=== PATIENT | female | born 1990 | race Caucasian/White ===

== ENCOUNTER 2018-07-04 16:04 | Observation (INO) | payer BC, OTHER ==
[2018-07-04] MEDS ORDERED: NS 0.9% 1000 ML* 1,000 ML IV ONE (16:24)
[2018-07-04] MEDS ORDERED: Ondansetron INJ* 2 MG/ML VIAL IV ONE (16:24)
[2018-07-04] MEDS ORDERED: Ketorolac INJ* 30 MG/ML 1 ML VIAL IV PUSH ONE (16:38)
--- NOTE | 2018-07-04 16:44 | ED ---
Nausea/Vomiting/Diarrhea HPI - HPI Summary HPI Summary: 28-year-old otherwise healthy female presents with 3 weeks worth of watery diarrhea now complicated by right flank pain that developed this afternoon. She has not had any urinary symptoms nor fever. She's had nausea without vomiting and also felt lightheaded to the point of possibly passing out today. She has a Mirena IUD and does not get irregular menses. She recently started a new job at [employer]. She has had no recent antibiotics nor exposure to elderly or nursing homes. - History of Current Complaint Chief Complaint: EDNauseaVomitDiarrh Stated Complaint: GENERAL ILLNESS Time Seen by Provider: 07/04/18 16:24 Hx Obtained From: Patient Pain Intensity: 10 - Allergies/Home Medications Allergies/Adverse Reactions: Allergies Allergy/AdvReac Type Severity Reaction Status Date / Time Penicillins Allergy Hives Verified 07/04/18 16:10 PMH/Surg Hx/FS Hx/Imm Hx Previously Healthy: Yes Infectious Disease History: No Infectious Disease History: Denies: Hx Clostridium Difficile, Traveled Outside the in Last 30 Days - Family History Known Family History: Positive: Hypertension - Social History Occupation: Employed Part-time Hx Substance Use: No Smoking Status (MU): Smoker, Current Status Unknown Review of Systems Positive: Fatigue. Negative: Fever ENT: Negative Cardiovascular: Negative Respiratory: Negative Positive: Diarrhea, Nausea, Other - watery diarrhea without melena or hematochezia. Negative: Abdominal Pain, Vomiting Positive: no symptoms reported Positive: Weakness All Other Systems Reviewed And Are Negative: Yes Physical Exam Triage Information Reviewed: Yes Vital Signs On Initial Exam: Initial Vitals Temp Pulse Resp BP Pulse Ox 98.4 F 106 18 121/71 99 07/04/18 16:11 07/04/18 16:11 07/04/18 16:11 07/04/18 16:11 07/04/18 16:11 Vital Signs Reviewed: Yes Appearance: Positive: Well-Appearing, Well-Nourished. Negative: No Pain Distress - Mild distress due to discomfort in the right flank Skin: Positive: Warm, Skin Color Reflects Adequate Perfusion, Dry Head/Face: Positive: Normal Head/Face Inspection Eyes: Positive: Normal ENT: Positive: Normal ENT inspection, Other - Mucous membranes moist Neck: Positive: Nontender, No Lymphadenopathy Respiratory/Lung Sounds: Positive: Clear to Auscultation, Breath Sounds Present Cardiovascular: Positive: RRR Abdomen Description: Positive: Nontender, No Organomegaly, Soft, Other: - Hyperactive bowel sounds Bowel Sounds: Positive: Hyperactive Musculoskeletal: Positive: Other - Tenderness to palpation in the right paralumbar musculature. Right CVA tenderness. Neurological: Positive: Normal, Sensory/Motor Intact, Alert, Oriented to Person Place, Time, CN Intact II-III Psychiatric: Positive: Normal AVPU Assessment: Alert Diagnostics - Vital Signs Vital Signs Temp Pulse Resp BP Pulse Ox 07/04/18 16:11 98.4 F 106 18 121/71 99 - Laboratory Result Diagrams: 07/04/18 16:40 07/04/18 16:40 Lab Statement: Any lab studies that have been ordered have been reviewed, and results considered in the medical decision making process. Re-Evaluation - Re-Evaluation First Eval Re-Evaluation Time: 17:54 Change: Improved - No improvement with Toradol, IV fluids but has had some improvement with morphine Naus/Vom/Diarrhea Course/Dx - Course Course Of Treatment: Patient with significant right CVA tenderness and muscular tenderness in that side as well as urinary symptoms and a positive UA. She has elevated WBC and nausea without vomiting. Diarrhea may be causative of acute pyelonephritis. Stool sample sent. Renal ultrasound pending. Discussed with hospitalist who will admit. IV Rocephin here for infection. - Differential Dx/Diagnosis Differential Diagnoses - Female: Appendicitis, , Pyelonephritis, Renal Calculi, Other - C. difficile colitis Provider Diagnoses: Acute pyelonephritis. Acute diarrhea Is Visit Related: No Condition At Discharge: Fair - Physician Notification/Consults Discussed Case/Management/Disposition Of Patient With: Kenton Ramsey - will evaluate in the ER and admit Instructed by Provider To: Admit As Inpatient Discharge - Sign-Out/Discharge Documenting (check all that apply): Patient Departure - Discharge Plan Condition: Fair Disposition: ADMITTED TO [facility] Referrals: No Primary Care Phys,NOPCP [Primary Care Provider] - - Billing Disposition and Condition Condition: FAIR Disposition: Admitted to [facility] - Attestation Statements Document Initiated by Scribe: No
[2018-07-04 16:47] LABS: ABS Basophils 0 10^3/ul (0-0.2); ABS Eosinophils 0.1 10^3/ul (0-0.6); ABS Lymphocytes 1.7 10^3/ul (1.0-4.8); ABS Monocytes 1.1 10^3/ul (0-0.8); ABS Neutrophils 10.7 10^3/ul (1.5-7.7); ABS Nucleated RBC 0 10^3/ul; Eosinophil % 0.8 % (0-6); Hematocrit 36 % (35-47); Hemoglobin 11.9 g/dl (12.0-16.0); Lymphocyte % 12.7 % (25-47); Mean Corpuscular HGB Conc 34 g/dl (31-36); Mean Corpuscular Hemoglobin 32 pg (27-31); Mean Corpuscular Volume 95 fL (80-97); Mean Platelet Volume 8.7 um3 (7.4-10.4); Nucleated Red Blood Cells % 0; Platelet Count 152 10^3/ul (150-450); Red Blood Count 3.76 10^6/ul (4.00-5.40); Red Cell Distribution Width 13 % (10.5-15); White Blood Count 13.7 10^3/ul (3.5-10.8)
[2018-07-04 17:07] LABS: Urine Appearance Cloudy; Urine Blood Negative (Negative); Urine Color Yellow; Urine Ketones Negative (Negative); Urine Protein 1+(30 mg/dL) (Negative); Urine Red Blood Cell 3+(>10/hpf) (Absent); Urine Specific Gravity 1.018 (1.010-1.030); Urine Urobilinogen Negative (Negative); Urine White Blood Cell 3+(>20/hpf) (Absent)
[2018-07-04 17:10] LABS: EGFR Non-African American 58.5 (>60)
[2018-07-04] MEDS ORDERED: cefTRIAXone(*) 1 GM in NS 0.9% 50 ML* 50 ML IVPB ONE (17:18)
[2018-07-04] MEDS ORDERED: Morphine INJ** 4 MG/ML 1 ML CARPUJECT IV ONE (17:19)
[2018-07-04] MEDS ORDERED: Morphine INJ* 4 MG/ML 1 ML SYRINGE (NEW SYRINGE VERSION) ONE (17:27)
[2018-07-04] MEDS ORDERED: Morphine INJ* 4 MG/ML 1 ML SYRINGE (NEW SYRINGE VERSION) IV ONE (18:35)
[2018-07-04] MEDS ORDERED: Acetaminophen TAB* 325 MG PO PRN (18:36)
[2018-07-04] MEDS ORDERED: Ketorolac INJ* 30 MG/ML 1 ML VIAL IV PRN (18:36)
[2018-07-04] MEDS ORDERED: Al Hydrox/Mg Hydrox/Simet LIQ* 30 ML UDC PO PRN (18:38)
--- NOTE | 2018-07-04 18:56 | RAD ---
EXAM: US Retroperitoneal Limited, Renal CLINICAL HISTORY: 28 years old, female; Pain; Abdominal pain; Flank; Right; Additional info: R flank pain, pyelo TECHNIQUE: Real-time ultrasound of the right kidney (limited) with image documentation. COMPARISON: No relevant prior studies available. FINDINGS: Right kidney: Normal-sized right kidney, 12.5 cm in length without hydronephrosis, stone, or mass. Left kidney: Not evaluated IMPRESSION: Normal-sized right kidney, 12.5 cm in length without hydronephrosis, stone, or mass. To contact [facility] with a general question: Operations Center - [phone] For direct physician to physician contact: Physician Hotline - [phone] [facility] ([facility] Facility ID #[id number])
[2018-07-04 20:35] VITALS: BP 136/75
--- NOTE | 2018-07-04 21:24 | DCNOTE ---
Subjective Date of Service: 07/04/18 Interval History: this is a 28 yr old female presented to er with flank pain and diarrheas. pt was treated with antibotic. renal sono did not show stones. hospitalist service was summoned multiple times for her requests for higher and stronger dose of opioids. pt also c/o her finger tips have been numb but no definite color change and has been going on for few weeks ( first time ) then changed her c/o to today ( when revisted ) she has been getting her friend's neurontin prior to coming here. explained to her that neuro consult could be called in tmr morning. pt was offered with tramadol and toradol besides her morphine but she demands a stronger pain medication ---> morphine would last 5 min for her. she wants to go to another facility which will treat her pain " properly ". pt wants to go [facility] now and already called her friend at bedside to take her to another facility. as per friend, she lives much closer to [facility]. pt was not d/cd with any meds because she planned to go to another facility immediately after leaving here. pt knows the risks of leaving [facility] including worsening condition with resultant permanent disability and and demands iv access to be out now. Objective Active Medications: Acetaminophen (Tylenol Tab*) 650 mg PO Q6H PRN PRN Reason: PAIN Al Hydrox/Mg Hydrox/Simethicone (Maalox Plus*) 30 ml PO Q6H PRN PRN Reason: INDIGESTION Lactated Ringer's (Lactated Ringers 1000 Ml Bag*) 1,000 mls @ 175 mls/hr IV PER RATE BHARATH Stop: 07/06/18 00:43 Ceftriaxone Sodium 1 gm/ (Sodium Chloride) 50 mls @ 200 mls/hr IVPB Q24H BHARATH Ketorolac Tromethamine (Toradol Inj*) 30 mg IV Q6H PRN PRN Reason: PAIN Stop: 07/09/18 18:36 Vital Signs - 8 hr 07/04/18 07/04/18 07/04/18 16:11 17:30 17:31 Temperature 98.4 F Pulse Rate 106 84 Respiratory 18 18 Rate Blood Pressure 121/71 122/78 (mmHg) O2 Sat by Pulse 99 100 Oximetry 07/04/18 07/04/18 07/04/18 18:00 18:30 19:00 Temperature Pulse Rate 87 93 90 Respiratory Rate Blood Pressure 127/86 127/86 131/85 (mmHg) O2 Sat by Pulse 100 100 100 Oximetry 07/04/18 07/04/18 07/04/18 19:19 19:31 19:50 Temperature 98.2 F Pulse Rate 104 104 Respiratory 18 18 Rate Blood Pressure 131/89 131/89 (mmHg) O2 Sat by Pulse 100 100 Oximetry 07/04/18 07/04/18 19:59 20:18 Temperature 98.9 F Pulse Rate 99 Respiratory 20 18 Rate Blood Pressure 136/75 (mmHg) O2 Sat by Pulse 98 Oximetry Oxygen Devices in Use Now: None Result Diagrams: 07/04/18 16:40 07/04/18 16:40 Microbiology and Other Data: Microbiology 07/04/18 18:37 C. difficile DNA Amplification - Final Stool 027 Presumptive NEGATIVE Toxigenic C.diff NEGATIVE Assess/Plan/Problems-Billing Assessment:
--- NOTE | 2018-07-05 00:16 | HP ---
ADMISSION HISTORY AND PHYSICAL: DATE OF ADMISSION: 07/04/18 PRIMARY CARE PROVIDER: Dr. Steele; however, has not seen in 3 years. HEALTHCARE PROXY: John Richardson, her boyfriend. CODE STATUS: Full. SOURCE OF INFORMATION: History obtained from interview with patient and review of past medical records. RELIABILITY: Poor. The patient is an inconsistent and difficult historian. CHIEF COMPLAINT: Right flank pain and diarrhea. HISTORY OF PRESENT ILLNESS: This is a 28-year-old female with no known significant past medical history who had been in her usual state of health until approximately 2 weeks prior to presentation to our service, noticed right flank pain that lasted for several minutes, several times a day. Around the same time, she started to develop watery bowel movements that have occurred approximately 7 times per day, most frequently in the morning before tapering off later in the afternoon. She states that the bowel movements do not wake her up from her sleep, although are preceded by the abdominal pain that is relieved with her defecation, which is predominantly watery. Yesterday, she noted the pain in the right flank was much worse. She took Motrin with some relief; however, woke up this morning with sharp-like knife pain in her right flank. It was worse with inspiration. She had nausea, but no vomiting associated with pain. Denied any dysuria, decreased or increased urinary output , urinary hesitancy, fevers, chills, night sweats, rigors, cough, dyspnea on exertion, or chest pain. She noted the abdominal pain remains to be crampy and sharp to her right flank prior to bowel movements, which she noticed to be dark but not bloody or with mucus. The patient denies any recent travel. No recent antibiotics or no changes in medications. However, the patient does note that she has had some tingling in her hands and her toes for which she took gabapentin from a friend for the last week with the last dose yesterday. She has had UTIs in the remote past, she has difficulty characterizing, but did remember that she did experience dysuria with those. At the time of this interview, she was in pain requesting more pain medication predominantly for her right flank pain. In the emergency room, she received 1000 mL of normal saline as well as pain control before this author evaluated her. PAST MEDICAL HISTORY: None. MEDICATIONS: None. She does have the Mirena IUD. ALLERGIES: To PENICILLIN, which she believes causes hives. It should be noted that she has already received a dose of ceftriaxone in the emergency room this day without undue side effects. SOCIAL HISTORY: Smokes 1 pack every 2 to 3 days down from 1 pack per over the last 10 years. No alcohol. Denies all illicits. Works at the [employer]. FAMILY HISTORY: Significant for father with rheumatoid arthritis. Mother with no known medical history. REVIEW OF SYSTEMS: As per HPI, including right flank pain, diarrhea, abdominal pain relieved with defecation; nausea. Otherwise, all other systems reviewed and negative. PHYSICAL EXAMINATION GENERAL: Well appearing female, sitting up in bed, interactive, pleasant, no apparent distress. VITAL SIGNS: When seen by this author, 127/86, heart rate is 91, respiratory rate is 16, she is 100% on room air, T-max 98.4. HEENT: Oropharynx is clear. She has dry mucous membranes. Her sclerae are anicteric. She has non-elevated JVD. She has no cervical or supraclavicular lymphadenopathy. LUNGS: Clear to auscultation. She has quite significant right costovertebral angle tenderness. HEART: She has a regular rate and rhythm, a very soft 1/6 early peaking systolic ejection murmur, loudest in the right upper sternal border. ABDOMEN: Soft, nontender, nondistended. Positive bowel sounds. No rebound or guarding. EXTREMITIES: Warm and well perfused without clubbing, cyanosis, or edema. She has less than 2 second capillary refill. NEUROLOGIC: She is alert and oriented x3. Cranial nerves II through XII are intact. She has no apparent anxiety, agitation, or depression. LABORATORY DATA: Labs are reviewed, notable for a sodium of 154, chloride of 115, BUN 12, creatinine 1.11. Lactic acid 0.5. Total bilirubin 0.4, AST 13, ALT 10, alk phos 33. Her beta-hCG is less than 0.6. Her white blood cell count is 13.7, her hemoglobin is 11.9 with hematocrit of 36, MCV of 95, platelets 152. Her urine is notable for squamous epithelial cells and transitional cells as well as protein, leuk esterase, white blood cells, red blood cells, bacteria, and yeast. IMAGING: Data reviewed. Renal ultrasound is taken and pending. Chest x-ray is ordered by this author, has not yet been received. ASSESSMENT AND PLAN: This is a 28-year-old female with no known past medical history presenting with 2 weeks of increasing right flank pain associated with diarrhea. 1. Right flank pain. Greatest concern is pyelonephritis in the setting of her age as well as location. She certainly may have developed UTI in the setting of diarrhea. It is curious though that she had no preceding UTI symptoms, which should be expected in a woman this age especially in one that has had similar symptoms in the past. Her renal ultrasound is currently pending, looking for obstruction or other obvious stones. I will check a chest x-ray to rule out other pulmonary etiologies. Of note, she has Mirena and she is a smoker, which does not appear to increase the risk of pulmonary embolism as does estrogen contraceptives. I think pulmonary embolism is low in its risk, as her predominant symptoms are right flank pain and diarrhea in the absence of dyspnea on exertion or shortness of breath, cough. She is satting 100% on room air and no longer tachycardic after administration of fluids. However, if the infectious etiology is not identified and she fails to improve, we will proceed to a CTA of her chest to rule out an embolus. For infection, continue ceftriaxone, 2 more liters of fluid overnight, and repeat labs in the morning. 2. Diarrhea. Suspect viral; however, check C. diff as well as stool cultures. Fluids as indicated above. 3. Pain: One dose of morphine now and then Toradol and Tylenol. 4. DVT prophylaxis is low risk. DVT score is 0. Ambulate ad ralph. [id number]/[facility] #: [id number] [facility]
--- NOTE | 2018-07-05 07:56 | RAD ---
INDICATION: Dyspnea on exertion. RIGHT flank pain. COMPARISON: No relevant prior exams available on the [facility] [place]. TECHNIQUE: Dual energy PA and routine lateral views of the chest were obtained. REPORT: Clear lungs and pleural spaces. Negative for pneumothorax. The heart, pulmonary vasculature, and mediastinal contours are unremarkable. Unremarkable osseous structures and soft tissue contours. IMPRESSION: #. No evidence for acute intrathoracic disease. R1
[2018-07-05] MEDS ORDERED: cefTRIAXone(*) 1 GM in NS 0.9% 50 ML* 50 ML IVPB SCH (17:00)
== END 2018-07-04 20:30 | disposition left against medical advice (07) ==
LOC: ED 16:04 → MED 18:38
PROVIDERS: ADMIT Internal Medicine; ATTEND Internal Medicine
DX: N10 Acute pyelonephritis (principal); R19.7 Diarrhea, unspecified; R10.84 Generalized abdominal pain; R53.1 Weakness; Z72.0 Tobacco use; R53.83 Other fatigue; Z53.21 Procedure and treatment not carried out due to patient leaving prior to being seen by health care provider
CPT/HCPCS: 36415; 71046; 76775; 80053; 81003; 81015; 83605; 84702; 85025; 86703; 87045; 87046; 87077; 87086; 87186; 87425; 87493; 87899; 96365; 96366; 96375; 96376; 99284; G0378; J0696; J1885; J2270; J2405

== ENCOUNTER 2018-10-02 15:48 | Emergency (ER) | payer OTHER ==
[2018-10-02] MEDS ORDERED: HYDROcodone/ACETAMIN 5-325 MG* 1 TAB PO ONE (17:06)
[2018-10-02] MEDS ORDERED: Clindamycin CAP* 150 MG PO ONE (17:07)
--- NOTE | 2018-10-02 17:24 | ED ---
Throat Pain/Nasal Congestion - HPI Summary HPI Summary: Patient is a 28-year-old female with a history of gingivitis, broken teeth, issues with dentition and presenting to the ED with a left upper wisdom tooth Which broke off earlier this afternoon. She states she's been using ibuprofen without relief. She is currently at a 10 out of 10 pain, constant and aching. She is tearful on arrival. She states the pain is radiating up into the left ear and into the left side of the head causing a headache. She's never had anything like this before. She has never had an issue with dental infections. Patient is a smoker, denies smoking currently due to the pain. Denies any fevers, sweats, chills. - History of Current Complaint Chief Complaint: EDDentalPain Time Seen by Provider: 10/02/18 16:13 Hx Obtained From: Patient Onset/Duration: Sudden Onset Severity: Moderate Associated Signs And Symptoms: Positive: Negative - Epiglottits Risk Factors Epiglottis Risk Factors: Negative - Allergies/Home Medications Allergies/Adverse Reactions: Allergies Allergy/AdvReac Type Severity Reaction Status Date / Time Penicillins Allergy Hives Verified 10/02/18 16:14 Home Medications: Home Medications Ibuprofen TAB* [Motrin TAB* 800 MG] 800 mg PO Q6H PRN 10/02/18 [History Confirmed 10/02/18] PMH/Surg Hx/FS Hx/Imm Hx Previously Healthy: Yes Sensory History: Denies: Hx Contacts or Glasses, Hx Hearing Aid Opthamlomology History: Denies: Hx Contacts or Glasses - Immunization History Hx Pertussis Vaccination: No Immunizations Up to Date: Yes Infectious Disease History: No Infectious Disease History: Denies: Hx Clostridium Difficile, Traveled Outside the [place] in Last 30 Days - Family History Known Family History: Positive: Hypertension - Social History Occupation: Employed Full-time Lives: With Family Alcohol Use: None Hx Substance Use: No Substance Use Type: Reports: None Smoking Status (MU): Light Every Day Tobacco Smoker Review of Systems Negative: Fever, Chills, Fatigue, Skin Diaphoresis Positive: Dental Pain Negative: Palpitations, Chest Pain Negative: Shortness Of Breath, Cough Genitourinary: Negative Positive: no symptoms reported, see HPI Negative: Arthralgia, Myalgia Negative: Rash, Bruising Psychological: Normal All Other Systems Reviewed And Are Negative: Yes Physical Exam Triage Information Reviewed: Yes Vital Signs On Initial Exam: Initial Vitals Temp Pulse Resp BP Pulse Ox 98.6 F 76 18 133/80 100 10/02/18 16:00 10/02/18 16:00 10/02/18 16:00 10/02/18 16:00 10/02/18 16:00 Vital Signs Reviewed: Yes Appearance: Positive: Well-Appearing, Well-Nourished Skin: Positive: Warm, Skin Color Reflects Adequate Perfusion Head/Face: Positive: Normal Head/Face Inspection Eyes: Positive: EOMI, GRAHAM, Conjunctiva Clear Dental: Positive: Percussion Tenderness @, Gross Decay/Caries @, Dental Fracture @ - #17 Cardiovascular: Positive: RRR, Pulses are Symmetrical in both Upper and Lower Extremities Musculoskeletal: Positive: Normal, Strength/ROM Intact Neurological: Positive: Sensory/Motor Intact, Alert, Oriented to Person Place, Time, Speech Normal Psychiatric: Positive: Normal, Affect/Mood Appropriate AVPU Assessment: Alert Diagnostics - Vital Signs Vital Signs Temp Pulse Resp BP Pulse Ox 10/02/18 16:00 98.6 F 76 18 133/80 100 - Laboratory Lab Statement: Any lab studies that have been ordered have been reviewed, and results considered in the medical decision making process. EENT Course/Dx - Course Course Of Treatment: Patient appears in acute distress on arrival, she is tearful. She states the upper wisdom tooth, tooth #17. Earlier this afternoon and has been constantly throbbing since that time. Physical examination tooth # 17 with a cap missing over the tooth. No evidence of infection or swelling. No erythema to the cheek. She is given hydrocodone and clindamycin in the ED and also these are prescribed. She will continue to take ibuprofen and Tylenol and use [id number] Anbesol. She will follow-up with dentist as soon as possible. - Diagnoses Provider Diagnoses: Pain, dental, Fractured tooth Discharge - Sign-Out/Discharge Documenting (check all that apply): Patient Departure - Discharge Plan Condition: Stable Disposition: HOME Prescriptions: Clindamycin Cap(NF) [Clindamycin Cap 300 mg Cap(NF)] 300 mg PO Q8H #21 cap HYDROcodone/ACETAMIN 5-325 MG* [[place] 5-325 TAB*] 1 tab PO Q4H PRN #12 tab MDD 6 PRN Reason: Pain Patient Education Materials: Acute Dental Trauma (ED), Toothache (ED) Referrals: Harvey Steele MD [Primary Care Provider] - Additional Instructions: Please follow-up with dentist as soon as possible Ibuprofen 800 mg 3 times daily Tylenol 650 mg 3 times daily Use these intermittently You may also use the hydrocodone as needed Clindamycin 3 times daily 7 days Anbesol or clove oil to be used for discomfort - Billing Disposition and Condition Condition: STABLE Disposition: Home
[2018-10-02 17:37] VITALS: BP 122/73
== END 2018-10-02 17:36 | disposition home or self-care (01) ==
LOC: ED 15:48
DX: K08.89 Other specified disorders of teeth and supporting structures (principal); K03.81 Cracked tooth; Z88.0 Allergy status to penicillin; F17.200 Nicotine dependence, unspecified, uncomplicated
CPT/HCPCS: 99282; A9270-GY

== ENCOUNTER 2019-02-25 20:55 | Emergency (ER) | payer OTHER ==
[2019-02-25 21:29] LABS: Urine Appearance Clear; Urine Bilirubin Negative (Negative); Urine Blood Negative (Negative); Urine Color Yellow; Urine Glucose Negative (Negative); Urine Ketones Trace (Negative); Urine Nitrite Negative (Negative); Urine Protein Negative (Negative); Urine Urobilinogen Negative (Negative)
[2019-02-25] MEDS ORDERED: Ketorolac INJ* 30 MG/ML 1 ML VIAL IV PUSH ONE (23:14)
[2019-02-25] MEDS ORDERED: NS 0.9% 1000 ML** 1,000 ML IV SCH (23:15)
--- NOTE | 2019-02-25 23:17 | ED ---
GI/ HPI - HPI Summary HPI Summary: The patient is a 28 y/o F presenting to [facility] with a chief complaint of sudden onset right flank pain and vaginal symptoms starting this morning. She states she was driving to work when she had sudden onset vaginal burning without discharge or bleeding, and then she had sudden onset of right flank pain that radiates to the right low back. The sharp pain is currently rated 10/10 in severity and is aggravated by bending over. She denies fever, nausea, vomiting, and RLQ or LLQ pain. Hx of kidney infection. - History of Current Complaint Chief Complaint: EDAbdPain Time Seen by Provider: 02/25/19 23:00 Stated Complaint: FLANK/ABD PAIN PER PT Hx Obtained From: Patient Onset/Duration: Started Hours Ago - this morning, Still Present Timing: Constant Severity: Moderate Current Severity: Severe Pain Intensity: 10 Location of Pain: Flank - right Pain Characteristics: Sharp Pain Radiates to: Back - right low Associated Signs and Symptoms: Positive: Back Pain, Flank Pain - right, Other: - POSITIVE: vaginal burning;NEGATIVE: LLQ or RLQ pain. Negative: Nausea, Vomiting Additional Signs & Symptoms: Negative: Vaginal Bleeding, Vaginal Discharge Aggravating Factor(s): Movement - bending over Alleviating Factor(s): Nothing - Allergy/Home Medications Allergies/Adverse Reactions: Allergies Allergy/AdvReac Type Severity Reaction Status Date / Time Penicillins Allergy Hives Verified 02/25/19 20:59 Home Medications: Home Medications Gabapentin CAP(*) [Neurontin 400 mg CAP(*)] 400 mg PO BID 02/25/19 [History Confirmed 02/25/19] PMH/Surg Hx/FS Hx/Imm Hx Respiratory History: Denies: Hx Asthma History: Reports: Hx Kidney Infection Sensory History: Denies: Hx Contacts or Glasses, Hx Hearing Aid Opthamlomology History: Denies: Hx Contacts or Glasses - Surgical History Surgery Procedure, Year, and Place: none Infectious Disease History: No Infectious Disease History: Denies: Hx Clostridium Difficile, Traveled Outside the [place] in Last 30 Days - Family History Known Family History: Positive: Hypertension - Social History Occupation: Employed Full-time Alcohol Use: None Hx Substance Use: No Substance Use Type: Reports: None Hx Tobacco Use: Yes Smoking Status (MU): Light Every Day Tobacco Smoker Review of Systems Negative: Fever Negative: Vomiting, Nausea Positive: burning - in vaginal area, flank pain - right flank (no LLQ or RLQ), other - NEGATIVE: vaginal bleeding. Negative: discharge Positive: Other - right low back from flank All Other Systems Reviewed And Are Negative: Yes Physical Exam - Summary Physical Exam Summary: Appearance: Well appearing, no pain distress Skin: warm, dry, reflects adequate perfusion Head/face: normal Eyes: EOMI, GRAHAM ENT: normal Neck: supple, non-tender Respiratory: CTA, breath sounds present Cardiovascular: RRR, pulses symmetrical Abdomen: right flank tenderness, soft Musculoskeletal: normal, strength/ROM intact Neuro: normal, sensory motor intact, A&Ox3 Pelvic Exam: no adnexal tenderness, mild discharge, no CMT Triage Information Reviewed: Yes Vital Signs On Initial Exam: Initial Vitals Temp Pulse Resp BP Pulse Ox 98.7 F 94 18 121/83 99 02/25/19 20:57 02/25/19 20:57 02/25/19 20:57 02/25/19 20:57 02/25/19 20:57 Vital Signs Reviewed: Yes Diagnostics - Vital Signs Vital Signs Temp Pulse Resp BP Pulse Ox 02/25/19 20:57 98.7 F 94 18 121/83 99 - Laboratory Lab Results: Lab Results 02/25/19 02/25/19 Range/Units 21:16 21:31 Beta HCG, Quant < 0.60 mIU/mL Urine Color Yellow Urine Appearance Clear Urine pH 6.0 (5-9) Ur Specific [place] 1.010 (1.010-1.030) Urine Protein Negative (Negative) Urine Ketones Trace A (Negative) Urine Blood Negative (Negative) Urine Nitrate Negative (Negative) Urine Bilirubin Negative (Negative) Urine Urobilinogen Negative (Negative) Ur Leukocyte Esterase Negative (Negative) Urine Glucose Negative (Negative) Urine Ascorbic Acid * A (Negative) Result Diagrams: 02/25/19 21:31 02/25/19 21:31 Lab Statement: Any lab studies that have been ordered have been reviewed, and results considered in the medical decision making process. - CT Abd/Pel CT CT Interpretation Completed By: Radiologist Summary of CT Findings: 1. No CT findings to correlate with patient's symptomatology. Specifically no obstructing renal or ureteral calculi. 2. Left lower lobe mucus plug and associated atelectasis. Possibility of small focal pneumonia is additionally considered. ED physician has reviewed this radiology report. Re-Evaluation - Re-Evaluation First Eval Re-Evaluation Time: 01:30 Comment: I spoke with patient concerning results and discharge home. GIGU Course/Dx - Course Assessment/Plan: The patient is a 28 y/o F presenting to [facility] with a chief complaint of sudden onset right flank pain that radiates to the right low back and vaginal burning without discharge or bleeding starting this morning. Upon physical exam, the patient exhibits right flank tenderness, and pelvic exam reveals no adnexal tenderness, mild discharge, and no CMT. Pelvic exam was performed with help of nurse Lao. In the ED course, the patient was administered Ns and Toradol for pain. Blood work and UA obtained. CT Abd/Pel impression reveals no findings of renal calculi, but there is left lower lobe mucus plug with associated atelectasis. She is diagnosed with abdominal pain. She will be discharged home with prescription for Ibuprofen. She will follow up with her PCP in 2-3 days. She agrees with this plan and understands the need for return to the ED for any new or worsening symptoms. will call back if any results are positive - Diagnoses Provider Diagnoses: Abdominal pain Discharge - Sign-Out/Discharge Documenting (check all that apply): Patient Departure - Patient will be discharged home. Patient Received Moderate/Deep Sedation with Procedure: No - Discharge Plan Condition: Stable Disposition: HOME Prescriptions: Ibuprofen TAB* [Motrin TAB* 600 MG] 600 mg PO Q8H PRN #15 tab MDD 3 PRN Reason: Pain Patient Education Materials: Abdominal Pain (ED) Referrals: [facility]ERR[facility] [Outside] - 3 Days Additional Instructions: Please take medication as prescribed. Follow up with your primary care provider in 2-3 days. RETURN TO THE EMERGENCY DEPARTMENT FOR ANY NEW OR WORSENING SYMPTOMS. - Billing Disposition and Condition Condition: STABLE Disposition: Home - Attestation Statements Document Initiated by [email or web address]: Yes Documenting Scribe: Ana Paula Dillon Provider For Whom Cristal is Documenting (Include Credential): Dr. Lonnie Jaramillo MD Scribe Attestation: Ana Paula Grider scribed for Dr. Lonnie Jaramillo MD on 02/26/19 at 0254. Scribe Documentation Reviewed: Yes Provider Attestation: The documentation as recorded by the Ana Paula christian accurately reflects the service I personally performed and the decisions made by me, Dr. Lonnie Jaramillo MD Status of Scribe Document: Viewed
[2019-02-25 23:51] LABS: ABS Basophils 0.1 10^3/ul (0-0.2); ABS Eosinophils 0.2 10^3/ul (0-0.6); ABS Monocytes 0.8 10^3/ul (0-0.8); Eosinophil % 1.4 %; Hematocrit 39 % (35-47); Hemoglobin 12.8 g/dL (12.0-16.0); Lymphocyte % 27.5 %; Mean Corpuscular HGB Conc 33 g/dL (31-36); Mean Corpuscular Hemoglobin 31 pg (27-31); Mean Corpuscular Volume 94 fL (80-97); Mean Platelet Volume 9.2 fL (7.4-10.4); Platelet Count 208 10^3/uL (150-450); Red Cell Distribution Width 13 % (10.5-15)
[2019-02-25 23:53] LABS: Albumin 4.3 g/dL (3.2-5.2); Calcium 9.6 mg/dL (8.6-10.3); Potassium 4.3 mmol/L (3.5-5.0); Total Bilirubin 0.3 mg/dL (0.2-1.0)
[2019-02-25 23:59] LABS: Albumin/Globulin Ratio 1.5 (1-3); BUN/Creatinine Ratio 10.5 (8-20); C Reactive Protein 16.48 mg/L (<8.01); EGFR African American 95.1 (>60); EGFR Non-African American 78.6 (>60); Globulin 2.8 g/dL (2-4); Total Protein 7.1 g/dL (6.4-8.9)
[2019-02-26 00:19] LABS: Activated Partial Thrombo Time 35.5 seconds (26.0-38.0); INR 1.15 (0.82-1.09)
[2019-02-26 01:42] VITALS: BP 97/52
--- NOTE | 2019-02-27 09:10 | PN ---
Progress Note - Progress Note Date of Service: 02/26/19 Note: Called patient at 9:10a to make aware of test results. Positive Gardnerella, negative Leatha No answer. Left message. Patient called back at 10 AM. Discussed results with the patient. Flagyl 500 mg twice a day 7 days sent to pharmacy. 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
[2019-02-28 13:53] LABS: Neisseria gonorrhoeae (GC) RNA Negative (Negative)
[2019-02-28 14:08] LABS: Trichomonas vaginalis Result Negative (Negative)
[2019-02-28 18:29] LABS: HSV 1 PCR Negative (Negative); Herpes Source VAGINA
== END 2019-02-26 01:47 | disposition home or self-care (01) ==
LOC: ED 20:55
DX: R10.9 Unspecified abdominal pain (principal); R10.2 Pelvic and perineal pain; M54.5 Low back pain; B96.89 Other specified bacterial agents as the cause of diseases classified elsewhere; Z32.02 Encounter for pregnancy test, result negative; Z88.0 Allergy status to penicillin; F17.200 Nicotine dependence, unspecified, uncomplicated
CPT/HCPCS: 36415; 74176; 80053; 81003; 83690; 84702; 85025; 85610; 85730; 86140; 87480; 87491; 87510; 87529; 87591; 87661; 96374; 99283; J1885